=== PATIENT | female | born 1950 | race Caucasian/White ===

== ENCOUNTER 2018-08-08 07:37 | Day surgery (SDC) | payer MEDICARE, BC ==
[~2018-08-08 07:37] MED LIST: Sodium Chloride 0.9% 10 ML Syringe FLUSH PRN
[2018-08-08] MEDS ORDERED: fentaNYL 100 MCG/2 ML SDV IV ONE (07:38)
[2018-08-08] MEDS ORDERED: Midazolam 1 MG/ML 2 ML SDV IV ONE (07:38)
[2018-08-08 10:07] VITALS: BP 125/65
--- NOTE | 2018-08-09 09:41 | OR ---
DATE OF OPERATION: 08/08/2018 SURGEON: Kelley August MD PREOPERATIVE DIAGNOSIS: Visually significant cataract, left eye. POSTOPERATIVE DIAGNOSIS: Visually significant cataract, left eye. PROCEDURES PERFORMED: Phacoemulsification with intraocular lens placement, left eye. ASSISTANTS: None. ANESTHESIA: Local with sedation. COMPLICATIONS: None. BLOOD LOSS: None. IMPLANTS: Floyd [id number], 22.0 diopter lens implanted. CDE: 2.72. DESCRIPTION OF PROCEDURE: After risks and benefits were reviewed with the patient, consent was obtained in the preoperative area, and the operative eye was marked with a surgical pen. In the preoperative area, a pledget was used to dilate the pupil consisting of a mixture of phenylephrine 10%, cyclopentolate 2%, moxifloxacin 0.5%, and bupivacaine 0.75%. The patient was taken to the operating room, where a time-out was performed, and the patient was placed under monitored anesthesia care. Topical tetracaine was used for anesthesia. The operative eye was prepped and draped for ophthalmic surgery, and the microscope was brought into position and focussed. A paracentesis incision was made, followed by injection of preservative-free 1% lidocaine into the anterior chamber, followed by injection of Viscoat into the anterior chamber. A microkeratome blade was used to make a corneal limbal incision temporarily. A cystotome was used to make the beginning of the capsulorrhexis, which was carried around 360 degrees in a curvilinear fashion using Utrata forceps. A Macias cannula with BSS was used to hydrodissect and hydro-delineate the nucleus. The nucleus was removed in a divide and conquer manner using phacoemulsification. Irrigation and aspiration were used to remove the remaining cortical material. Provisc was used to inflate the capsular bag, and a pre-loaded Floyd [id number], 22.0 diopter lens, serial number [id number], was injected into the capsular bag. A Sinskey hook was used to position and center the lens. Next, irrigation and aspiration was used to remove any remaining viscoelastic and cortical material from the anterior chamber. BSS on a cannula was used to inflate the anterior chamber and hydrate the wound. The wound was checked and found to be watertight. 1 mg of Moxifloxacin was injected into the anterior chamber. Drapes were removed and the eye was cleaned. A drop of brimonidine 0.15% and a drop of TobraDex was placed. The eye was shielded, and the patient was taken to the recovery room in stable condition. /[id number] HI/ANA CC: NICKO KWON MD MTDD
== END 2018-08-08 09:57 | disposition home or self-care (01) ==
LOC: FB.SDS 07:37
PROVIDERS: ATTEND Ophthalmology
DX: H25.12 Age-related nuclear cataract, left eye (principal); H43.813 Vitreous degeneration, bilateral; H02.889 Meibomian gland dysfunction of unspecified eye, unspecified eyelid; I10 Essential (primary) hypertension; I25.10 Atherosclerotic heart disease of native coronary artery without angina pectoris; I25.2 Old myocardial infarction; E78.5 Hyperlipidemia, unspecified; K21.9 Gastro-esophageal reflux disease without esophagitis; G43.909 Migraine, unspecified, not intractable, without status migrainosus; E66.9 Obesity, unspecified; Z68.29 Body mass index [BMI] 29.0-29.9, adult; Z98.41 Cataract extraction status, right eye; Z96.1 Presence of intraocular lens; Z95.5 Presence of coronary angioplasty implant and graft; Z88.0 Allergy status to penicillin; Z88.1 Allergy status to other antibiotic agents; Z79.02 Long term (current) use of antithrombotics/antiplatelets; Z79.82 Long term (current) use of aspirin; Z79.899 Other long term (current) drug therapy
CPT/HCPCS: 00142-QZ; J2250; J3010; V2632

== ENCOUNTER 2019-04-07 22:48 | Emergency (ER) | payer MEDICARE, BC ==
--- NOTE | 2019-04-07 23:02 | EDM.PDOC ---
ED HPI GENERAL MEDICAL PROBLEM - General Stated Complaint: FELL Time Seen by Provider: 04/07/19 23:00 Source of Information: Reports: Patient History Limitations: Reports: No Limitations - History of Present Illness INITIAL COMMENTS - FREE TEXT/NARRATIVE: 69-year-old female who reports that she was walking back to her car from a basketball game at approximate 6 PM tonight and she slipped on ice falling directly on her right side and right hip. She did not hit her head. There was no loss of consciousness. She had immediate pain in her right hip and was unable to stand following this. She apparently was taken home by her family members and she continued to have pain in the area with any movement that was quite severe. She took ibuprofen for her pain without any relief and when she continued to not be able to move or bear weight on her leg she was brought to the emergency department via private vehicle with her family for evaluation. She is rating the pain as a 9/10. It is a sharp and crampy type pain. She has no neck or back pain. She has had some nausea associated with the pain but no vomiting. She had no antecedent problems. She is been eating and drinking normally. No cough or difficulty breathing. No nasal congestion. No dysuria or hematuria. No chest pain. There are no other associated signs or symptoms. There are no other modifying factors. Onset: Today (6 PM) Duration: Constant Location: Reports: Lower Extremity, Right (Right hip) Quality: Reports: Sharp, Other (Cramping and spasm-like) Severity: Moderate (to severe) Improves with: Reports: Immobilization, Rest Worsens with: Reports: Other (Palpation), Movement Context: Reports: Trauma (Fell from standing as above) Associated Symptoms: Reports: No Other Symptoms (Except as above) Treatments CHEF'S ASSISTANT: Reports: NSAIDS (Ibuprofen) right hip Pain Score (Numeric/FACES): 4 - Related Data Allergies Allergy/AdvReac Type Severity Reaction Status Date / Time Penicillins Allergy Rash Verified 08/08/18 08:08 sulfamethoxazole Allergy Hives Verified 08/08/18 08:08 [From Bactrim] trimethoprim [From Bactrim] Allergy Hives Verified 08/08/18 08:08 Home Meds: Home Meds Acetaminophen/Caffeine [Excedrin Tension Headache Cplt] 1 each PO DAILY PRN [History] Aspirin 81 mg PO DAILY 07/03/18 [History] Clopidogrel [Plavix] 75 mg PO DAILY 07/03/18 [History] Hydrocodone/Acetaminophen [[place] 5-325 Tablet] 1 - 2 each PO Q4H PRN 07/03/18 [ History] Ibuprofen [Advil] 200 mg PO Q4H PRN 07/03/18 [History] Metoprolol Succinate [Toprol XL] 25 mg PO DAILY 07/03/18 [History] Multivitamin [Daily Giorgio] 1 each PO DAILY 07/03/18 [History] Naproxen Sodium [Aleve] 220 mg PO DAILY PRN 07/03/18 [History] Nitroglycerin [Nitrostat] 0.4 mg SL ASDIRECTED PRN 07/03/18 [History] atorvaSTATin Calcium [Lipitor] 10 mg PO DAILY 07/03/18 [History] hydroCHLOROthiazide [Hydrochlorothiazide] 25 mg PO DAILY 07/03/18 [History] Past Medical History HEENT History: Reports: Cataract Cardiovascular History: Reports: Angina, CAD, High Cholesterol, Hypertension, NM , Stents (Patient is on Plavix) Genitourinary History: Reports: UTI, Recurrent Musculoskeletal History: Reports: Back Pain, Chronic Neurological History: Reports: Vertigo Hematologic History: Reports: Blood Transfusion(s) Other Hematologic History: HAD SOME TRANSFUSIONS AFTER DELIVERIES. - Infectious Disease History Infectious Disease History: Reports: Chicken Pox, Measles, Mumps - Past Surgical History HEENT Surgical History: Reports: Cataract Surgery Cardiovascular Surgical History: Reports: Coronary Artery Bypass, Coronary Artery Stent Other Cardiovascular Surgeries/Procedures: CARDIAC CATHETERIZATION GI Surgical History: Reports: Appendectomy, Cholecystectomy, Colonoscopy Female Surgical History: Reports: Section, Hysterectomy, Tubal Ligation Other Musculoskeletal Surgeries/Procedures:: HERNIATED DISC, SPINE SURGERY Social & Family History - Tobacco Use Smoking Status *Q: Unknown Ever Smoked (Nonsmoker) - Caffeine Use Caffeine Use: Reports: Coffee - Alcohol Use Alcohol Use History: No - Living Situation & Occupation Living situation: Reports: Occupation: Retired Social History Comment: Her family is here with her. Review of Systems - Review of Systems Review Of Systems: See Below Constitutional: Reports: No Symptoms Eyes: Reports: No Symptoms Ears: Reports: No Symptoms Nose: Reports: No Symptoms Mouth/Throat: Reports: No Symptoms Respiratory: Reports: No Symptoms Cardiovascular: Reports: No Symptoms GI/Abdominal: Reports: Nausea. Denies: Vomiting Genitourinary: Reports: No Symptoms Musculoskeletal: Reports: Joint Pain (Severe right hip pain) Skin: Reports: No Symptoms Neurological: Reports: No Symptoms ED EXAM, GENERAL - Physical Exam Exam: See Below Exam Limited By: No Limitations General Appearance: Alert, WD/WN, Moderate Distress Eye Exam: Bilateral Eye: EOMI, Normal Inspection, PERRL Ears: Normal External Exam, Hearing Grossly Normal Ear Exam: Bilateral Ear: Auricle Normal Nose: Normal Inspection, Normal Mucosa, No Blood Throat/Mouth: Normal Voice, No Airway Compromise, Other (Dry mucous membranes) Head: Atraumatic, Normocephalic Neck: Normal Inspection, Supple, Non-Tender, Full Range of Motion Respiratory/Chest: No Respiratory Distress, Lungs Clear, Normal Breath Sounds, No Accessory Muscle Use, Chest Non-Tender Cardiovascular: Normal Peripheral Pulses, Regular Rate, Rhythm, No JVD, No Murmur Peripheral Pulses: 2+: Radial (L), Radial (R), Dorsalis Pedis (L), Dorsalis Pedis (R) GI/Abdominal: Normal Bowel Sounds, Soft, Non-Tender, Pelvis Stable Extremities: No Pedal Edema, Normal Capillary Refill, Other (Moderate to severe tenderness with palpation over right hip area) Neurological: Alert, Oriented, CN II-XII Intact, Normal Cognition, No Motor/ Sensory Deficits Skin Exam: Warm, Dry, Intact, Normal Color, No Rash Course - Vital Signs Last Recorded V/S: Last Vital Signs Temp 36.6 C 04/07/19 23:00 Pulse 74 04/08/19 02:00 Resp 18 04/08/19 02:00 BP 118/51 L 04/08/19 02:00 Pulse Ox 94 L 04/08/19 02:00 - Orders/Labs/Meds Orders: Active Orders 24 hr Category Date Time Status Insert Urinary Catheter [OM.PC] Q24H Care 04/08/19 00:15 Ordered Urinary Catheter Assessment [RC] QSHIFT Care 04/08/19 00:03 Active Hip Min 2V or 3V w Pelvis Rt [CR] Stat Exams 04/07/19 23:15 Taken Peripheral IV Insertion Adult [OM.PC] Routine Oth 04/07/19 23:15 Ordered Labs: Laboratory Tests 01/26/20 01/26/20 01/26/20 Range/Units 00:20 00:20 00:20 WBC 15.0 H (4.5-12.0) X10-3/uL RBC 4.93 (3.23-5.20) x10(6)uL Hgb 13.6 (11.5-15.5) g/dL Hct 40.7 (30.0-51.3) % MCV 82.5 (80-96) fL MCH 27.6 L (27.7-33.6) pg MCHC 33.4 (32.2-35.4) g/dL RDW 13.1 (11.5-15.5) % Plt Count 286 (125-369) X10(3)uL MPV 8.8 (7.4-10.4) fL Neut % (Auto) 83.6 H (46-82) % Lymph % (Auto) 8.8 L (13-37) % [place] % (Auto) 6.6 (4-12) % Eos % (Auto) 1 (1.0-5.0) % Baso % (Auto) 0 (0-2) % Neut # (Auto) 12.5 H (1.6-8.3) # Lymph # (Auto) 1.3 (0.6-5.0) # [place] # (Auto) 1.0 (0.0-1.3) # Eos # (Auto) 0.1 (0.0-0.8) # Baso # (Auto) 0.1 (0.0-0.2) # PT 10.4 (8.7-11.1) INR 1.07 (0.89-1.13) Sodium 143 (135-145) mmol/L Potassium 3.0 L (3.5-5.3) mmol/L Chloride 104 (100-110) mmol/L Carbon Dioxide 26 (21-32) mmol/L BUN 13 (7-18) mg/dL Creatinine 0.8 (0.55-1.02) mg/dL Est Cr Clr Drug Dosing TNP Estimated GFR (MDRD) > 60 (>60) BUN/Creatinine Ratio 16.3 (9-20) Glucose 170 H (80-116) mg/dL Calcium 9.6 (8.6-10.2) mg/dL Total Bilirubin 1.0 (0.1-1.3) mg/dL AST 43 H (5-25) IU/L ALT 40 H (12-36) U/L Alkaline Phosphatase 59 (56-112) IU/L Total Protein 7.5 (6.0-8.0) g/dL Albumin 4.0 (3.2-4.6) g/dL Globulin 3.5 g/dL Albumin/Globulin Ratio 1.1 Urine Color (YELLOW) Urine Appearance (CLEAR) Urine pH (5.0-6.5) Ur Specific [place] (1.010-1.025) Urine Protein (NEGATIVE) mg/dL Urine Glucose (UA) (NORMAL) mg/dL Urine Ketones (NEGATIVE) mg/dL Urine Occult Blood (NEGATIVE) Urine Nitrite (NEGATIVE) Urine Bilirubin (NEGATIVE) Urine Urobilinogen (NEGATIVE) mg/dL Ur Leukocyte Esterase (NEGATIVE) Urine RBC (0-5) Urine WBC (0-5) Ur Squamous Epith Cells (NS,R,O) Urine Bacteria (NS) 04/08/19 Range/Units 01:45 WBC (4.5-12.0) X10-3/uL RBC (3.23-5.20) x10(6)uL Hgb (11.5-15.5) g/dL Hct (30.0-51.3) % MCV (80-96) fL MCH (27.7-33.6) pg MCHC (32.2-35.4) g/dL RDW (11.5-15.5) % Plt Count (125-369) X10(3)uL MPV (7.4-10.4) fL Neut % (Auto) (46-82) % Lymph % (Auto) (13-37) % [place] % (Auto) (4-12) % Eos % (Auto) (1.0-5.0) % Baso % (Auto) (0-2) % Neut # (Auto) (1.6-8.3) # Lymph # (Auto) (0.6-5.0) # [place] # (Auto) (0.0-1.3) # Eos # (Auto) (0.0-0.8) # Baso # (Auto) (0.0-0.2) # PT (8.7-11.1) INR (0.89-1.13) Sodium (135-145) mmol/L Potassium (3.5-5.3) mmol/L Chloride (100-110) mmol/L Carbon Dioxide (21-32) mmol/L BUN (7-18) mg/dL Creatinine (0.55-1.02) mg/dL Est Cr Clr Drug Dosing Estimated GFR (MDRD) (>60) BUN/Creatinine Ratio (9-20) Glucose (80-116) mg/dL Calcium (8.6-10.2) mg/dL Total Bilirubin (0.1-1.3) mg/dL AST (5-25) IU/L ALT (12-36) U/L Alkaline Phosphatase (56-112) IU/L Total Protein (6.0-8.0) g/dL Albumin (3.2-4.6) g/dL Globulin g/dL Albumin/Globulin Ratio Urine Color Yellow (YELLOW) Urine Appearance Cloudy (CLEAR) Urine pH 6.0 (5.0-6.5) Ur Specific [place] 1.015 (1.010-1.025) Urine Protein Negative (NEGATIVE) mg/dL Urine Glucose (UA) Normal (NORMAL) mg/dL Urine Ketones 15 H (NEGATIVE) mg/dL Urine Occult Blood Moderate H (NEGATIVE) Urine Nitrite Positive H (NEGATIVE) Urine Bilirubin Negative (NEGATIVE) Urine Urobilinogen Normal (NEGATIVE) mg/dL Ur Leukocyte Esterase Large H (NEGATIVE) Urine RBC 5-10 H (0-5) Urine WBC 40-50 H (0-5) Ur Squamous Epith Cells Occasional (NS,R,O) Urine Bacteria Many H (NS) Meds: Medications Discontinued Medications Generic Name Dose Route Start Last Admin Trade Name Freq PRN Reason Stop Dose Admin Hydromorphone HCl 0.5 mg 04/07/19 23:16 04/07/19 23:28 Dilaudid IVPUSH 04/07/19 23:17 0.5 mg ONETIME ONE Administration Hydromorphone HCl 0.5 mg 04/08/19 00:03 04/08/19 01:04 Dilaudid IVPUSH 04/08/19 00:04 0.5 mg ONETIME ONE Administration Sodium Chloride 1,000 mls @ 125 mls/hr 04/07/19 23:30 04/07/19 23:30 Normal Saline IV 125 mls/hr ASDIRECTED RENEE Administration Promethazine HCl 25 mg/ Sodium 51 mls @ 200 mls/hr 04/08/19 02:07 04/08/19 02 :12 Chloride IV 04/08/19 02:22 200 mls/hr ONETIME ONE Administration Ondansetron HCl 4 mg 04/07/19 23:16 04/07/19 23:29 Zofran IVPUSH 04/07/19 23:17 4 mg ONETIME ONE Administration Ondansetron HCl 4 mg 04/08/19 01:07 04/08/19 01:38 Zofran IVPUSH 04/08/19 01:08 4 mg ONETIME ONE Administration Potassium Chloride 40 meq 04/08/19 00:58 04/08/19 01:39 Potassium Chloride Solution PO 04/08/19 00:59 Not Given ONETIME ONE Sodium Chloride 10 ml 04/07/19 23:15 04/08/19 01:07 Saline Flush FLUSH 10 ml ASDIRECTED PRN Administration Keep Vein Open - Radiology Interpretation Free Text/Narrative:: Right hip and pelvis x-ray shows a right subcapital hip fracture. - Re-Assessments/Exams Free Text/Narrative Re-Assessment/Exam: 04/08/19 00:40: X-ray of the patient's right hip and pelvis shows a right subcapital hip fracture. She will need orthopedic specially services which are at present at [facility]. She will need transfer for these services. I discussed this with the patient and she would prefer that I discussed her case with the doctors at [facility] in [place]. 04/08/19 01:00: I discussed the patient's case with Dr. Malagon, hospitalist at [facility] in [place], and he has agreed to accept the patient in transfer. The patient's potassium was 3.0 and I will give her potassium 40 mEq by mouth. In addition, the patient is having recurrent pain and I will give her another dose of Dilaudid IV. She'll also be given Zofran IV for any nausea. The patient will be transferred via service to [facility] in [place] for direct admission. I have discussed this with the patient and her family and they are in agreement with this plan. 04/08/19 01:38: She was unable to take the potassium secondary to nausea with emesis. Departure - Departure Time of Disposition: 02:15 Disposition: DC/Tfer to Acute Hospital 02 Condition: Fair (Stable) Clinical Impression: Subcapital fracture of right hip Qualifiers: Encounter type: initial encounter Fracture type: closed Qualified Code(s): S72.011A - Unspecified intracapsular fracture of right femur, initial encounter for closed fracture Fall from slipping on ice Qualifiers: Encounter type: initial encounter Qualified Code(s): W00.9XXA - Unspecified fall due to ice and snow, initial encounter - Discharge Information Referrals: Reeys Johnson MD [Primary Care Provider] - Forms: ED Department Discharge Sepsis Event Note - Focused Exam Vital Signs: Vital Signs Temp Pulse Resp BP Pulse Ox 04/08/19 02:00 74 18 118/51 L 94 L 04/08/19 01:00 70 15 140/68 100 04/07/19 23:00 36.6 C 78 16 132/66 100 Date Exam was Performed: 04/08/19 Time Exam was Performed: 04:18 - My Orders Last 24 Hours: My Active Orders 04/07/19 23:15 Hip Min 2V or 3V w Pelvis Rt [CR] Stat Peripheral IV Insertion Adult [OM.PC] Routine 04/08/19 00:03 Urinary Catheter Assessment [RC] QSHIFT 04/08/19 00:15 Insert Urinary Catheter [OM.PC] Q24H - Assessment/Plan Last 24 Hours: My Active Orders 04/07/19 23:15 Hip Min 2V or 3V w Pelvis Rt [CR] Stat Peripheral IV Insertion Adult [OM.PC] Routine 04/08/19 00:03 Urinary Catheter Assessment [RC] QSHIFT 04/08/19 00:15 Insert Urinary Catheter [OM.PC] Q24H
[2019-04-07] MEDS ORDERED: Sodium Chloride 0.9% 10 ML Syringe FLUSH PRN (23:15)
[2019-04-07] MEDS ORDERED: Ondansetron 4 MG/2 ML SDV IVPUSH ONE (23:16)
[2019-04-07] MEDS ORDERED: HYDROmorphone 2 MG/ML SDV IVPUSH ONE (23:16)
[2019-04-07] MEDS ORDERED: Sodium Chloride 0.9% 1,000 ML IV SCH (23:30)
[2019-04-08] MEDS ORDERED: HYDROmorphone 2 MG/ML SDV IVPUSH ONE (00:03)
[2019-04-08] MEDS ORDERED: Potassium Chloride 10% 20 MEQ/15 ML Soln 15 ML UD Cup PO ONE (00:58)
[2019-04-08] MEDS ORDERED: Ondansetron 4 MG/2 ML SDV IVPUSH ONE (01:07)
[2019-04-08] MEDS ORDERED: Promethazine 25 MG in Sodium Chloride 0.9% 50 ML IV ONE (02:07)
[2019-04-08 02:52] VITALS: BP 118/51; PULSE 74
== END 2019-04-08 02:15 ==
LOC: FB.ED 22:48
DX: S72.011A Unspecified intracapsular fracture of right femur, initial encounter for closed fracture (principal); I25.10 Atherosclerotic heart disease of native coronary artery without angina pectoris; E78.00 Pure hypercholesterolemia, unspecified; I10 Essential (primary) hypertension; I25.2 Old myocardial infarction; Z79.82 Long term (current) use of aspirin; Z79.02 Long term (current) use of antithrombotics/antiplatelets; Z88.0 Allergy status to penicillin; Z88.1 Allergy status to other antibiotic agents; Z88.2 Allergy status to sulfonamides; Z95.5 Presence of coronary angioplasty implant and graft; W00.0XXA Fall on same level due to ice and snow, initial encounter; Y92.310 Basketball court as the place of occurrence of the external cause
CPT/HCPCS: 36415; 51702; 73502; 80053; 81001; 85025; 85610; 96361; 96374; 96375; 96376; 99284; 99285; J1170; J2405; J2550; J7030; J7050

== ENCOUNTER 2021-09-07 11:38 | Emergency (ER) | payer MEDICARE, BC ==
[2021-09-07 11:51] VITALS: BP 114/52; PULSE 56
[2021-09-07] MEDS: NS + KCl 20mEq/L 1,000 ML IV SCH ×2 (13:52→17:27)
[2021-09-07] MEDS: Magnesium Sulfate/Water 2 GM in Premix Bag 1 BAG IV ONE (13:57)
[2021-09-07] MEDS: Potassium Chloride 20 MEQ Tab.ER PO ONE (13:58)
[2021-09-07] MEDS: Ciprofloxacin 500 MG Tab PO ONE (14:54)
== END 2021-09-07 19:00 | disposition home or self-care (01) ==
LOC: FB.ED 11:38
DX: N30.00 Acute cystitis without hematuria (principal); E86.0 Dehydration; E83.42 Hypomagnesemia; I25.119 Atherosclerotic heart disease of native coronary artery with unspecified angina pectoris; I10 Essential (primary) hypertension; I25.2 Old myocardial infarction; Z95.5 Presence of coronary angioplasty implant and graft; Z88.0 Allergy status to penicillin; Z88.1 Allergy status to other antibiotic agents; Z79.82 Long term (current) use of aspirin; Z79.02 Long term (current) use of antithrombotics/antiplatelets; Z79.899 Other long term (current) drug therapy; Z86.73 Personal history of transient ischemic attack (TIA), and cerebral infarction without residual deficits
CPT/HCPCS: 36415; 70450; 81001; 83735; 87086; 87088; 87186; 96365; 96366; 96367; 96368; 99282; 99285-25; A9270-GY; J3475; J3480

== ENCOUNTER 2021-12-31 08:25 | Day surgery (SDC) | payer MEDICARE, BC ==
[2021-12-31 06:50] VITALS: BP_SYST 2658
[2021-12-31] MEDS ORDERED: Sodium Chloride 0.9% 10 ML Syringe FLUSH PRN (08:45)
[2021-12-31] MEDS ORDERED: Lactated Ringers 1,000 ML IV SCH (08:45)
[2021-12-31] MEDS ORDERED: Propofol 200 MG/20 ML SDV IV ONE (11:00)
== END 2021-12-31 13:30 | disposition home or self-care (01) ==
LOC: FB.SDS 08:25
PROVIDERS: ATTEND Surgery
DX: Z12.11 Encounter for screening for malignant neoplasm of colon (principal); I10 Essential (primary) hypertension; F32.A Depression, unspecified; E66.9 Obesity, unspecified; R73.9 Hyperglycemia, unspecified; N39.0 Urinary tract infection, site not specified; E83.52 Hypercalcemia; Z79.899 Other long term (current) drug therapy; Z88.0 Allergy status to penicillin; Z88.2 Allergy status to sulfonamides; Z90.49 Acquired absence of other specified parts of digestive tract; Z98.890 Other specified postprocedural states; Z68.25 Body mass index [BMI] 25.0-25.9, adult
CPT/HCPCS: G0121; J2704; J7120

== ENCOUNTER 2022-06-14 16:46 | Emergency (ER) | payer MEDICARE, BC ==
[2022-06-14 18:10] VITALS: BP 135/71; PULSE 58
== END 2022-06-14 18:36 | disposition home or self-care (01) ==
LOC: FB.ED 16:46
DX: S70.01XA Contusion of right hip, initial encounter (principal); I25.10 Atherosclerotic heart disease of native coronary artery without angina pectoris; E78.00 Pure hypercholesterolemia, unspecified; I10 Essential (primary) hypertension; I25.2 Old myocardial infarction; E66.9 Obesity, unspecified; Z68.25 Body mass index [BMI] 25.0-25.9, adult; Z88.0 Allergy status to penicillin; Z88.2 Allergy status to sulfonamides; Z88.8 Allergy status to other drugs, medicaments and biological substances; Z79.82 Long term (current) use of aspirin; Z79.899 Other long term (current) drug therapy; Z95.5 Presence of coronary angioplasty implant and graft; Z95.1 Presence of aortocoronary bypass graft; W18.30XA Fall on same level, unspecified, initial encounter; Y92.009 Unspecified place in unspecified non-institutional (private) residence as the place of occurrence of the external cause
CPT/HCPCS: 73502-RT; 99283

== ENCOUNTER 2023-06-09 20:29 | Inpatient (IN) | payer MEDICARE, BC ==
[2023-06-09] MEDS ORDERED: Sodium Chloride 0.9% 10 ML Syringe FLUSH PRN (20:55)
[2023-06-09 21:48] LABS: BASOPHILS PERCENT AUTO 0.7 % (0.2-1.5); EOSINOPHILS PERCENT AUTO 0.1 % (0.6-8.1); HEMATOCRIT 42.6 % (34.2-48.2); HEMOGLOBIN 14.5 g/dL (11.4-15.5); LYMPHOCYTES ABSOLUTE AUTO 0.5 x10-3/uL (1.0-4.4); LYMPHOCYTES PERCENT AUTO 7.5 % (18.4-52.1); MEAN CORPUSCULAR HEMOGLOBIN 29.2 pg (23.9-33.9); MEAN CORPUSCULAR VOLUME 85.7 fL (76.7-100.5); MEAN PLATELET VOLUME 8.8 fL (7.1-12.4); MONOCYTES ABSOLUTE AUTO 0.9 x10-3/uL (0.3-1.0); MONOCYTES PERCENT AUTO 12.1 % (4.4-15.7); NEUTROPHILS ABSOLUTE AUTO 5.7 x10-3/uL (1.5-6.3); NEUTROPHILS PERCENT AUTO 79.6 % (30.8-76.2); PLATELET COUNT,PLT 229 x10(3)uL (151-488); RED BLOOD CELL COUNT 4.97 x10(6)uL (3.60-5.20); RED CELL DISTRIBUTION WIDTH 14.6 % (12.3-16.5); WHITE BLOOD CELL COUNT,WBC 7.2 x10-3/uL (3.0-10.3)
[2023-06-09 21:49] LABS: BLOOD UREA NITROGEN,BUN 19 mg/dL (7-18); BUN/CREATININE RATIO 15.8 (9-20); CALCIUM 9.6 mg/dL (8.6-10.2); CARBON DIOXIDE,CO2 26 mmol/L (21-32); CHLORIDE,CL 97 mmol/L (100-110); CREATININE 1.2 mg/dL (0.55-1.02); ESTIMATED GFR 48 mL/min (>60); GLUCOSE RANDOM 134 mg/dL (80-116); POTASSIUM,K 4.2 mmol/L (3.5-5.3); SODIUM,NA 134 mmol/L (135-145)
[2023-06-09 21:55] LABS: A/G RATIO 0.8; ALANINE AMINOTRANSFERASE,ALT 41 U/L (12-36); ALBUMIN 3.9 g/dL (3.2-4.6); ALKALINE PHOSPHATASE 98 IU/L (56-112); ASPARTATE AMNIOTRANSFERASE,AST 37 IU/L (5-25); BILIRUBIN TOTAL 0.9 mg/dL (0.1-1.3); PROTEIN TOTAL,TP 8.8 g/dL (6.0-8.0)
[2023-06-09 22:12] LABS: INFLUENZA A NAA POSITIVE (NEGATIVE); INFLUENZA B NAA NEGATIVE (NEGATIVE); RESPIRATORY SYNCYTIAL VIR NAA NEGATIVE (NEGATIVE)
[2023-06-09 22:13] LABS: CORONAVIRUS COVID-19 NAA NEGATIVE (NEGATIVE)
[2023-06-09 22:21] LABS: C-REACTIVE PROTEIN < 0.50 mg/dL (<0.50)
[2023-06-09] MEDS ORDERED: Ketorolac 30 MG/ML SDV IM PRN (22:23)
[2023-06-09] MEDS ORDERED: Morphine 2 MG/ML SYRINGE IVPUSH PRN (22:25)
[2023-06-09] MEDS: Codeine/guaiFENesin 10-100 MG/5 ML Syrup 5 ML Cup PO SCH (23:18)
[2023-06-09] MEDS: Oseltamivir 75 MG Cap PO SCH (23:18)
[2023-06-09] MEDS: Acetaminophen 325 MG Tab PO PRN (23:18)
[2023-06-09] MEDS: Sodium Chloride 0.9% 1,000 ML IV SCH (23:19)
[2023-06-09 23:44] LABS: BILIRUBIN,URINE NEGATIVE (NEGATIVE); GLUCOSE,URINE NORMAL (NORMAL); KETONES,URINE 15 mg/dL (NEGATIVE); LEUKOCYTE ESTERASE,URINE LARGE (NEGATIVE); NITRITE,URINE POSITIVE (NEGATIVE); OCCULT BLOOD,URINE LARGE (NEGATIVE); PROTEIN,URINE 30 mg/dL (NEGATIVE); UROBILINOGEN,URINE NORMAL (NEGATIVE)
[2023-06-09 23:45] LABS: APPEARANCE,URINE CLOUDY (CLEAR); COLOR,URINE YELLOW (YELLOW)
[2023-06-09 23:52] LABS: BACTERIA,URINE MANY (NS); SQUAMOUS EPITHELIAL CELLS,UR MODERATE (NS,R,O); WBC,URINE >100 (0-5)
[2023-06-10] MEDS: Sodium Chloride 0.9% 1,000 ML IV SCH (07:54)
[2023-06-10 08:05] LABS: BASOPHILS PERCENT AUTO 0.6 % (0.2-1.5); EOSINOPHILS PERCENT AUTO 0.4 % (0.6-8.1); HEMATOCRIT 39.5 % (34.2-48.2); HEMOGLOBIN 13.2 g/dL (11.4-15.5); LYMPHOCYTES ABSOLUTE AUTO 0.7 x10-3/uL (1.0-4.4); LYMPHOCYTES PERCENT AUTO 12.8 % (18.4-52.1); MEAN CORPUSCULAR HEMOGLOBIN 28.9 pg (23.9-33.9); MEAN CORPUSCULAR HGB CONC 33.4 g/dL (31.9-34.8); MEAN CORPUSCULAR VOLUME 86.6 fL (76.7-100.5); MEAN PLATELET VOLUME 8.7 fL (7.1-12.4); MONOCYTES ABSOLUTE AUTO 0.7 x10-3/uL (0.3-1.0); MONOCYTES PERCENT AUTO 13.5 % (4.4-15.7); NEUTROPHILS ABSOLUTE AUTO 3.7 x10-3/uL (1.5-6.3); NEUTROPHILS PERCENT AUTO 72.7 % (30.8-76.2); PLATELET COUNT,PLT 194 x10(3)uL (151-488); RED BLOOD CELL COUNT 4.56 x10(6)uL (3.60-5.20); RED CELL DISTRIBUTION WIDTH 15.3 % (12.3-16.5); WHITE BLOOD CELL COUNT,WBC 5.2 x10-3/uL (3.0-10.3)
[2023-06-10] MEDS: Sodium Chloride 0.9% 1,000 ML IV ONE (08:10)
[2023-06-10 08:12] LABS: A/G RATIO 0.7; ALANINE AMINOTRANSFERASE,ALT 35 U/L (12-36); ALBUMIN 3.2 g/dL (3.2-4.6); ALKALINE PHOSPHATASE 83 IU/L (56-112); ASPARTATE AMNIOTRANSFERASE,AST 36 IU/L (5-25); BILIRUBIN TOTAL 0.9 mg/dL (0.1-1.3); BLOOD UREA NITROGEN,BUN 20 mg/dL (7-18); CALCIUM 8.2 mg/dL (8.6-10.2); CARBON DIOXIDE,CO2 25 mmol/L (21-32); CHLORIDE,CL 103 mmol/L (100-110); EST CRCL DRUG DOSING (CG) 35.45 mL/min; ESTIMATED GFR 59 mL/min (>60); GLUCOSE RANDOM 101 mg/dL (80-116); PROTEIN TOTAL,TP 7.5 g/dL (6.0-8.0); SODIUM,NA 137 mmol/L (135-145)
[2023-06-10] MEDS ORDERED: cefTRIAXone 1 GM in Sodium Chloride 0.9% 50 ML IV SCH (08:30)
[2023-06-10] MEDS: cefTRIAXone 1 GM Vial IVPUSH SCH (09:14)
[2023-06-10] MEDS: Enoxaparin 40 MG/0.4 ML Syringe SUBCUT SCH (09:47)
[2023-06-10] MEDS: Oseltamivir 30 MG Cap PO SCH (09:47)
[2023-06-10] MEDS: Codeine/guaiFENesin 10-100 MG/5 ML Syrup 5 ML Cup PO PRN (14:38)
[2023-06-10] MEDS: Pregabalin 25 MG Cap PO SCH (20:15)
[2023-06-10] MEDS: Donepezil 10 MG Tab PO SCH (20:16)
[2023-06-10] MEDS: Memantine 10 MG Tab PO SCH (20:16)
[2023-06-11] MEDS: atorvaSTATin 20 MG Tab PO SCH (08:56)
[2023-06-11] MEDS: Clopidogrel 75 MG Tab PO SCH (08:57)
[2023-06-11] MEDS ORDERED: Potassium Chloride 20 MEQ Tab.ER PO SCH (09:00)
[2023-06-12] MEDS: Cefdinir 300 MG Cap PO SCH ×2 (10:26→23:28)
[2023-06-13] MEDS: Ondansetron 4 MG Tab.DIS PO PRN (05:33)
[2023-06-13 06:52] LABS: BASOPHILS PERCENT AUTO 1.1 % (0.2-1.5); EOSINOPHILS ABSOLUTE AUTO 0.3 x10-3/uL (0.0-0.8); EOSINOPHILS PERCENT AUTO 7.3 % (0.6-8.1); HEMOGLOBIN 11.4 g/dL (11.4-15.5); LYMPHOCYTES ABSOLUTE AUTO 0.7 x10-3/uL (1.0-4.4); LYMPHOCYTES PERCENT AUTO 18.7 % (18.4-52.1); MEAN CORPUSCULAR HEMOGLOBIN 28.8 pg (23.9-33.9); MEAN CORPUSCULAR HGB CONC 33.5 g/dL (31.9-34.8); MEAN CORPUSCULAR VOLUME 85.9 fL (76.7-100.5); MEAN PLATELET VOLUME 8.2 fL (7.1-12.4); MONOCYTES ABSOLUTE AUTO 0.4 x10-3/uL (0.3-1.0); MONOCYTES PERCENT AUTO 9.6 % (4.4-15.7); NEUTROPHILS ABSOLUTE AUTO 2.5 x10-3/uL (1.5-6.3); NEUTROPHILS PERCENT AUTO 63.3 % (30.8-76.2); PLATELET COUNT,PLT 165 x10(3)uL (151-488); RED BLOOD CELL COUNT 3.96 x10(6)uL (3.60-5.20); RED CELL DISTRIBUTION WIDTH 14.8 % (12.3-16.5)
[2023-06-13 07:02] LABS: BLOOD UREA NITROGEN,BUN 6 mg/dL (7-18); BUN/CREATININE RATIO 7.5 (9-20); CARBON DIOXIDE,CO2 23 mmol/L (21-32); CHLORIDE,CL 108 mmol/L (100-110); CREATININE 0.8 mg/dL (0.55-1.02); EST CRCL DRUG DOSING (CG) 44.31 mL/min; ESTIMATED GFR 77 mL/min (>60); GLUCOSE RANDOM 95 mg/dL (80-116); POTASSIUM,K 2.9 mmol/L (3.5-5.3); SODIUM,NA 141 mmol/L (135-145)
[2023-06-13] MEDS: Potassium Chloride 20 MEQ Tab.ER PO SCH (09:03)
[2023-06-14 06:27] LABS: BASOPHILS PERCENT AUTO 0.9 % (0.2-1.5); EOSINOPHILS ABSOLUTE AUTO 0.3 x10-3/uL (0.0-0.8); EOSINOPHILS PERCENT AUTO 7.3 % (0.6-8.1); HEMOGLOBIN 11.3 g/dL (11.4-15.5); LYMPHOCYTES ABSOLUTE AUTO 0.9 x10-3/uL (1.0-4.4); LYMPHOCYTES PERCENT AUTO 22.9 % (18.4-52.1); MEAN CORPUSCULAR HEMOGLOBIN 28.6 pg (23.9-33.9); MEAN CORPUSCULAR HGB CONC 33.3 g/dL (31.9-34.8); MEAN CORPUSCULAR VOLUME 85.9 fL (76.7-100.5); MONOCYTES ABSOLUTE AUTO 0.4 x10-3/uL (0.3-1.0); MONOCYTES PERCENT AUTO 11.1 % (4.4-15.7); NEUTROPHILS ABSOLUTE AUTO 2.2 x10-3/uL (1.5-6.3); NEUTROPHILS PERCENT AUTO 57.8 % (30.8-76.2); PLATELET COUNT,PLT 181 x10(3)uL (151-488); RED BLOOD CELL COUNT 3.96 x10(6)uL (3.60-5.20); RED CELL DISTRIBUTION WIDTH 15.3 % (12.3-16.5); WHITE BLOOD CELL COUNT,WBC 3.8 x10-3/uL (3.0-10.3)
[2023-06-14 06:31] LABS: BLOOD UREA NITROGEN,BUN 9 mg/dL (7-18); CALCIUM 8.1 mg/dL (8.6-10.2); CARBON DIOXIDE,CO2 22 mmol/L (21-32); CHLORIDE,CL 107 mmol/L (100-110); CREATININE 0.9 mg/dL (0.55-1.02); EST CRCL DRUG DOSING (CG) 39.39 mL/min; ESTIMATED GFR 67 mL/min (>60); GLUCOSE RANDOM 108 mg/dL (80-116); POTASSIUM,K 3.3 mmol/L (3.5-5.3); SODIUM,NA 141 mmol/L (135-145)
[2023-06-14 08:17] VITALS: PULSE 62
[2023-06-14] MEDS: Potassium Chloride 20 MEQ Tab.ER PO ONE (09:27)
[2023-06-14 11:05] VITALS: BP 123/64
== END 2023-06-14 11:40 | disposition home health service (06) | DRG 194 ==
LOC: FB.ED 20:29 → FB.MS 22:46
PROVIDERS: ADMIT Family Medicine; ATTEND Family Medicine
PROC: 0T9B70Z Drainage of Bladder with Drainage Device, Via Natural or Artificial Opening (ICD-10-PCS; principal; 2023-06-10)
DX: J10.1 Influenza due to other identified influenza virus with other respiratory manifestations (principal); J11.1 Influenza due to unidentified influenza virus with other respiratory manifestations; I10 Essential (primary) hypertension; F01.A3 Vascular dementia, mild, with mood disturbance; I25.810 Atherosclerosis of coronary artery bypass graft(s) without angina pectoris; N30.01 Acute cystitis with hematuria; F02.A3 Dementia in other diseases classified elsewhere, mild, with mood disturbance; F05 Delirium due to known physiological condition; E86.0 Dehydration; M54.9 Dorsalgia, unspecified; G89.29 Other chronic pain; M70.71 Other bursitis of hip, right hip; M53.3 Sacrococcygeal disorders, not elsewhere classified; I25.10 Atherosclerotic heart disease of native coronary artery without angina pectoris; E78.00 Pure hypercholesterolemia, unspecified; G30.9 Alzheimer's disease, unspecified; E66.9 Obesity, unspecified; I95.89 Other hypotension; I12.9 Hypertensive chronic kidney disease with stage 1 through stage 4 chronic kidney disease, or unspecified chronic kidney disease; N18.31 Chronic kidney disease, stage 3a; Z74.09 Other reduced mobility; E87.6 Hypokalemia; B96.20 Unspecified Escherichia coli [E. coli] as the cause of diseases classified elsewhere; Z88.0 Allergy status to penicillin; Z88.2 Allergy status to sulfonamides; Z88.8 Allergy status to other drugs, medicaments and biological substances; Z79.899 Other long term (current) drug therapy; Z79.02 Long term (current) use of antithrombotics/antiplatelets; I25.2 Old myocardial infarction; Z95.5 Presence of coronary angioplasty implant and graft; Z87.81 Personal history of (healed) traumatic fracture; Z68.32 Body mass index [BMI] 32.0-32.9, adult; Z98.49 Cataract extraction status, unspecified eye; Z95.1 Presence of aortocoronary bypass graft; Z90.49 Acquired absence of other specified parts of digestive tract; Z98.890 Other specified postprocedural states; Z90.710 Acquired absence of both cervix and uterus; Z98.51 Tubal ligation status; W19.XXXA Unspecified fall, initial encounter
CPT/HCPCS: 0241U; 36415; 71045; 80048; 80053; 81001; 84484; 85025; 86140; 87040; 87086; 87088; 87186; 97161-GP; 97165-GO; 97530-GP; 99223; 99233; 99238; 99285; A9270-GY; J0696; J1650; J7030; Q0162

== ENCOUNTER 2023-07-12 08:55 | Inpatient (IN) | payer MEDICARE, BC ==
[2023-07-12 10:13] LABS: BILIRUBIN,URINE NEGATIVE (NEGATIVE); GLUCOSE,URINE NORMAL (NORMAL); KETONES,URINE NEGATIVE (NEGATIVE); LEUKOCYTE ESTERASE,URINE LARGE (NEGATIVE); NITRITE,URINE NEGATIVE (NEGATIVE); OCCULT BLOOD,URINE LARGE (NEGATIVE); PROTEIN,URINE 30 mg/dL (NEGATIVE); UROBILINOGEN,URINE NORMAL (NEGATIVE)
[2023-07-12 10:16] LABS: APPEARANCE,URINE CLOUDY (CLEAR); COLOR,URINE YELLOW (YELLOW)
[2023-07-12 10:17] LABS: BASOPHILS PERCENT AUTO 0.5 % (0.2-1.5); EOSINOPHILS PERCENT AUTO 0.5 % (0.6-8.1); HEMATOCRIT 40.5 % (34.2-48.2); HEMOGLOBIN 13.7 g/dL (11.4-15.5); LYMPHOCYTES ABSOLUTE AUTO 0.6 x10-3/uL (1.0-4.4); LYMPHOCYTES PERCENT AUTO 6.6 % (18.4-52.1); MEAN CORPUSCULAR HEMOGLOBIN 29.2 pg (23.9-33.9); MEAN CORPUSCULAR HGB CONC 33.9 g/dL (31.9-34.8); MEAN CORPUSCULAR VOLUME 86.2 fL (76.7-100.5); MEAN PLATELET VOLUME 9.3 fL (7.1-12.4); MONOCYTES ABSOLUTE AUTO 0.7 x10-3/uL (0.3-1.0); MONOCYTES PERCENT AUTO 7.7 % (4.4-15.7); NEUTROPHILS ABSOLUTE AUTO 8.1 x10-3/uL (1.5-6.3); NEUTROPHILS PERCENT AUTO 84.7 % (30.8-76.2); RED CELL DISTRIBUTION WIDTH 14.4 % (12.3-16.5); WHITE BLOOD CELL COUNT,WBC 9.5 x10-3/uL (3.0-10.3)
[2023-07-12 10:17] LABS: BACTERIA,URINE MANY (NS); RBC,URINE >100 (0-5); SQUAMOUS EPITHELIAL CELLS,UR FEW (NS,R,O); WBC,URINE PACKED (0-5)
[2023-07-12 10:26] LABS: LACTIC ACID 1.9 mmol/L (0.4-2.0)
[2023-07-12 10:29] LABS: PLATELET COUNT,PLT 260 x10(3)uL (151-488)
[2023-07-12 10:39] LABS: INFLUENZA A NAA NEGATIVE (NEGATIVE); INFLUENZA B NAA NEGATIVE (NEGATIVE); RESPIRATORY SYNCYTIAL VIR NAA NEGATIVE (NEGATIVE)
[2023-07-12 10:40] LABS: CORONAVIRUS COVID-19 NAA NEGATIVE (NEGATIVE)
[2023-07-12 10:43] LABS: BLOOD UREA NITROGEN,BUN 12 mg/dL (7-18); CALCIUM 9.4 mg/dL (8.6-10.2); CARBON DIOXIDE,CO2 22 mmol/L (21-32); CHLORIDE,CL 101 mmol/L (100-110); EST CRCL DRUG DOSING (CG) 35.45 mL/min; ESTIMATED GFR 59 mL/min (>60); GLUCOSE RANDOM 126 mg/dL (80-116); POTASSIUM,K 3.7 mmol/L (3.5-5.3); SODIUM,NA 138 mmol/L (135-145)
[2023-07-12 10:49] LABS: A/G RATIO 0.8; ALANINE AMINOTRANSFERASE,ALT 32 U/L (12-36); ALBUMIN 3.7 g/dL (3.2-4.6); ALKALINE PHOSPHATASE 94 IU/L (56-112); ASPARTATE AMNIOTRANSFERASE,AST 24 IU/L (5-25); BILIRUBIN TOTAL 1.2 mg/dL (0.1-1.3); CREATINE KINASE,CK 130 IU/L (60-160); PROTEIN TOTAL,TP 8.1 g/dL (6.0-8.0)
[2023-07-12] MEDS ORDERED: cefTRIAXone 1 GM Vial IVPUSH SCH (11:00)
[2023-07-12] MEDS: Ertapenem 1 GM in Sodium Chloride 0.9% 50 ML IV SCH (11:12)
[2023-07-12] MEDS ORDERED: Ondansetron 4 MG/2 ML SDV IV PRN (12:28)
[2023-07-12] MEDS ORDERED: Sennosides/Docusate Sodium 50-8.6 MG Tab PO PRN (12:28)
[2023-07-12] MEDS ORDERED: Nitroglycerin 0.4 MG Tab.SL SL PRN (12:38)
[2023-07-12] MEDS ORDERED: Meclizine 25 MG Tab PO PRN (12:38)
[2023-07-12] MEDS ORDERED: Bisacodyl 10 MG Supp RECTAL PRN (12:38)
[2023-07-12] MEDS ORDERED: guaiFENesin 100 MG/5 ML Soln 5 ML UD Cup PO PRN (12:38)
[2023-07-12] MEDS ORDERED: Loperamide 2 MG Cap PO PRN (12:38)
[2023-07-12] MEDS ORDERED: Aluminum Hydroxide/Magnesium Hydroxide Susp 30 ML Cup PO PRN (12:56)
[2023-07-12] MEDS ORDERED: Magnesium Hydroxide 400 MG/5 ML Susp 30 ML Cup PO PRN (12:57)
[2023-07-12] MEDS: Pregabalin 25 MG Cap PO SCH (15:00)
[2023-07-12] MEDS: Acetaminophen 650 MG Tab.ER PO PRN (15:00)
[2023-07-12] MEDS: Enoxaparin 40 MG/0.4 ML Syringe SUBCUT SCH (15:01)
[2023-07-12] MEDS: Calcium Carbonate 500 MG Tablet PO SCH (20:43)
[2023-07-12] MEDS: Donepezil 10 MG Tab PO SCH (20:43)
[2023-07-12] MEDS: Memantine 10 MG Tab PO SCH (20:44)
[2023-07-12] MEDS ORDERED: Sulfamethoxazole/Trimethoprim 800-160 MG Tab PO SCH (21:00)
[2023-07-13 06:46] LABS: BASOPHILS PERCENT AUTO 0.6 % (0.2-1.5); EOSINOPHILS PERCENT AUTO 0.7 % (0.6-8.1); HEMATOCRIT 39.6 % (34.2-48.2); HEMOGLOBIN 13.1 g/dL (11.4-15.5); LYMPHOCYTES ABSOLUTE AUTO 0.8 x10-3/uL (1.0-4.4); LYMPHOCYTES PERCENT AUTO 11.6 % (18.4-52.1); MEAN CORPUSCULAR HEMOGLOBIN 28.6 pg (23.9-33.9); MEAN CORPUSCULAR HGB CONC 33.1 g/dL (31.9-34.8); MEAN CORPUSCULAR VOLUME 86.5 fL (76.7-100.5); MONOCYTES ABSOLUTE AUTO 0.8 x10-3/uL (0.3-1.0); MONOCYTES PERCENT AUTO 12.5 % (4.4-15.7); NEUTROPHILS PERCENT AUTO 74.6 % (30.8-76.2); PLATELET COUNT,PLT 217 x10(3)uL (151-488); RED BLOOD CELL COUNT 4.57 x10(6)uL (3.60-5.20); RED CELL DISTRIBUTION WIDTH 14.9 % (12.3-16.5); WHITE BLOOD CELL COUNT,WBC 6.7 x10-3/uL (3.0-10.3)
[2023-07-13 06:58] LABS: A/G RATIO 0.8; ALANINE AMINOTRANSFERASE,ALT 29 U/L (12-36); ALBUMIN 3.3 g/dL (3.2-4.6); ALKALINE PHOSPHATASE 83 IU/L (56-112); ASPARTATE AMNIOTRANSFERASE,AST 26 IU/L (5-25); BILIRUBIN TOTAL 1.1 mg/dL (0.1-1.3); BLOOD UREA NITROGEN,BUN 15 mg/dL (7-18); BUN/CREATININE RATIO 13.6 (9-20); CALCIUM 9.2 mg/dL (8.6-10.2); CARBON DIOXIDE,CO2 27 mmol/L (21-32); CHLORIDE,CL 101 mmol/L (100-110); CREATININE 1.1 mg/dL (0.55-1.02); EST CRCL DRUG DOSING (CG) 32.23 mL/min; ESTIMATED GFR 53 mL/min (>60); GLUCOSE RANDOM 103 mg/dL (80-116); PROTEIN TOTAL,TP 7.5 g/dL (6.0-8.0); SODIUM,NA 137 mmol/L (135-145)
[2023-07-13] MEDS: Clopidogrel 75 MG Tab PO SCH (08:51)
[2023-07-13] MEDS: Potassium Chloride 20 MEQ Tab.ER PO SCH (08:51)
[2023-07-13] MEDS: atorvaSTATin 20 MG Tab PO SCH (08:51)
[2023-07-13] MEDS: Spironolactone 25 MG Tab PO SCH (08:51)
[2023-07-13] MEDS: Metoprolol Succinate 50 MG Tab.ER PO SCH (08:52)
[2023-07-13] MEDS: Ertapenem 1 GM in Sodium Chloride 0.9% 50 ML IV SCH (12:57)
[2023-07-14 06:33] LABS: BASOPHILS ABSOLUTE AUTO 0.1 x10-3/uL (0.0-0.1); BASOPHILS PERCENT AUTO 1.1 % (0.2-1.5); EOSINOPHILS ABSOLUTE AUTO 0.1 x10-3/uL (0.0-0.8); EOSINOPHILS PERCENT AUTO 2.7 % (0.6-8.1); HEMOGLOBIN 12.6 g/dL (11.4-15.5); MEAN CORPUSCULAR HEMOGLOBIN 28.6 pg (23.9-33.9); MEAN CORPUSCULAR HGB CONC 33.2 g/dL (31.9-34.8); MEAN CORPUSCULAR VOLUME 86.2 fL (76.7-100.5); MONOCYTES ABSOLUTE AUTO 0.7 x10-3/uL (0.3-1.0); MONOCYTES PERCENT AUTO 12.1 % (4.4-15.7); NEUTROPHILS ABSOLUTE AUTO 3.6 x10-3/uL (1.5-6.3); NEUTROPHILS PERCENT AUTO 66.1 % (30.8-76.2); PLATELET COUNT,PLT 236 x10(3)uL (151-488); RED BLOOD CELL COUNT 4.41 x10(6)uL (3.60-5.20); RED CELL DISTRIBUTION WIDTH 14.8 % (12.3-16.5); WHITE BLOOD CELL COUNT,WBC 5.4 x10-3/uL (3.0-10.3)
[2023-07-14 06:38] LABS: BLOOD UREA NITROGEN,BUN 14 mg/dL (7-18); BUN/CREATININE RATIO 15.6 (9-20); CALCIUM 9.1 mg/dL (8.6-10.2); CARBON DIOXIDE,CO2 27 mmol/L (21-32); CHLORIDE,CL 101 mmol/L (100-110); CREATININE 0.9 mg/dL (0.55-1.02); EST CRCL DRUG DOSING (CG) 39.39 mL/min; ESTIMATED GFR 67 mL/min (>60); GLUCOSE RANDOM 104 mg/dL (80-116); POTASSIUM,K 4.1 mmol/L (3.5-5.3); SODIUM,NA 135 mmol/L (135-145)
[2023-07-15 16:28] VITALS: BP 133/66; PULSE 64
[2023-07-18] MEDS ORDERED: Alendronate 70 MG Tab PO SCH (06:00)
== END 2023-07-15 16:45 | disposition home or self-care (01) | DRG 690 ==
LOC: FB.ED 08:55 → FB.MS 12:48
PROVIDERS: ADMIT Family Medicine; ATTEND Internal Medicine
DX: R53.1 Weakness (principal); F03.90 Unspecified dementia, unspecified severity, without behavioral disturbance, psychotic disturbance, mood disturbance, and anxiety; N30.01 Acute cystitis with hematuria; I12.0 Hypertensive chronic kidney disease with stage 5 chronic kidney disease or end stage renal disease; F02.A3 Dementia in other diseases classified elsewhere, mild, with mood disturbance; I25.10 Atherosclerotic heart disease of native coronary artery without angina pectoris; E66.9 Obesity, unspecified; E78.5 Hyperlipidemia, unspecified; Z88.8 Allergy status to other drugs, medicaments and biological substances; G30.1 Alzheimer's disease with late onset; G89.29 Other chronic pain; I25.2 Old myocardial infarction; M54.9 Dorsalgia, unspecified; I12.9 Hypertensive chronic kidney disease with stage 1 through stage 4 chronic kidney disease, or unspecified chronic kidney disease; B96.20 Unspecified Escherichia coli [E. coli] as the cause of diseases classified elsewhere; N18.31 Chronic kidney disease, stage 3a; R35.0 Frequency of micturition; Z68.31 Body mass index [BMI] 31.0-31.9, adult; Z95.1 Presence of aortocoronary bypass graft; Z88.0 Allergy status to penicillin; Z88.2 Allergy status to sulfonamides; Z98.49 Cataract extraction status, unspecified eye; Z98.51 Tubal ligation status; Z79.02 Long term (current) use of antithrombotics/antiplatelets; Z90.49 Acquired absence of other specified parts of digestive tract; Z98.890 Other specified postprocedural states; Z90.710 Acquired absence of both cervix and uterus; Z79.899 Other long term (current) drug therapy; W19.XXXA Unspecified fall, initial encounter
CPT/HCPCS: 0241U; 36415; 71045; 80048; 80053; 81001; 82550; 83605; 84484; 85025; 87086; 87088; 87186; 93005; 96365; 97161; 97165; 97530; 99285; 99223; 99233; 99238; A9270-GY; J1335; J1650; J3490

== ENCOUNTER 2025-01-09 19:22 | Inpatient (IN) | payer MEDICARE, BC ==
[2025-01-09 19:50] LABS: BASOPHILS ABSOLUTE AUTO 0.1 x10-3/uL (0.0-0.1); BASOPHILS PERCENT AUTO 1.2 % (0.2-1.5); EOSINOPHILS ABSOLUTE AUTO 0.3 x10-3/uL (0.0-0.8); EOSINOPHILS PERCENT AUTO 4.6 % (0.6-8.1); LYMPHOCYTES ABSOLUTE AUTO 0.8 x10-3/uL (1.0-4.4); LYMPHOCYTES PERCENT AUTO 13.0 % (18.4-52.1); MEAN PLATELET VOLUME 8.4 fL (7.1-12.4); MONOCYTES ABSOLUTE AUTO 0.7 x10-3/uL (0.3-1.0); MONOCYTES PERCENT AUTO 11.0 % (4.4-15.7); NEUTROPHILS ABSOLUTE AUTO 4.3 x10-3/uL (1.5-6.3); NEUTROPHILS PERCENT AUTO 70.2 % (30.8-76.2); PLATELET COUNT,PLT 274 x10(3)uL (151-488); RED BLOOD CELL COUNT 4.64 x10(6)uL (3.60-5.20); RED CELL DISTRIBUTION WIDTH 15.1 % (12.3-16.5); WHITE BLOOD CELL COUNT,WBC 6.2 x10-3/uL (3.0-10.3)
[2025-01-09 19:57] LABS: BLOOD UREA NITROGEN,BUN 16 mg/dL (7-18); CARBON DIOXIDE,CO2 28 mmol/L (21-32); CHLORIDE,CL 101 mmol/L (100-110); CREATININE 1.4 mg/dL (0.55-1.02); EST CRCL DRUG DOSING (CG) 24.94 mL/min; ESTIMATED GFR 39 mL/min (>60); GLUCOSE RANDOM 135 mg/dL (80-116); POTASSIUM,K 4.0 mmol/L (3.5-5.3); SODIUM,NA 139 mmol/L (135-145)
[2025-01-09 20:03] LABS: A/G RATIO 0.8; ALANINE AMINOTRANSFERASE,ALT 21 U/L (12-36); ASPARTATE AMNIOTRANSFERASE,AST 23 IU/L (5-25); BILIRUBIN TOTAL 0.6 mg/dL (0.1-1.3); CREATINE KINASE,CK 126 IU/L (60-160); PROTEIN TOTAL,TP 8.1 g/dL (6.0-8.0)
[2025-01-09 20:58] LABS: LACTIC ACID 2.0 mmol/L (0.4-2.0)
[2025-01-09] MEDS ORDERED: Sennosides/Docusate Sodium 50-8.6 MG Tab PO PRN (21:02)
[2025-01-09] MEDS ORDERED: Ondansetron 4 MG/2 ML SDV IV PRN (21:02)
[2025-01-10 06:37] LABS: BASOPHILS ABSOLUTE AUTO 0.1 x10-3/uL (0.0-0.1); BASOPHILS PERCENT AUTO 1.4 % (0.2-1.5); EOSINOPHILS ABSOLUTE AUTO 0.4 x10-3/uL (0.0-0.8); EOSINOPHILS PERCENT AUTO 7.3 % (0.6-8.1); LYMPHOCYTES ABSOLUTE AUTO 1.0 x10-3/uL (1.0-4.4); LYMPHOCYTES PERCENT AUTO 17.2 % (18.4-52.1); MEAN PLATELET VOLUME 8.7 fL (7.1-12.4); MONOCYTES ABSOLUTE AUTO 0.7 x10-3/uL (0.3-1.0); MONOCYTES PERCENT AUTO 12.6 % (4.4-15.7); NEUTROPHILS ABSOLUTE AUTO 3.4 x10-3/uL (1.5-6.3); NEUTROPHILS PERCENT AUTO 61.5 % (30.8-76.2); PLATELET COUNT,PLT 235 x10(3)uL (151-488); RED BLOOD CELL COUNT 4.43 x10(6)uL (3.60-5.20); RED CELL DISTRIBUTION WIDTH 14.6 % (12.3-16.5); WHITE BLOOD CELL COUNT,WBC 5.5 x10-3/uL (3.0-10.3)
[2025-01-10 06:51] LABS: A/G RATIO 0.8; ALANINE AMINOTRANSFERASE,ALT 18 U/L (12-36); ASPARTATE AMNIOTRANSFERASE,AST 21 IU/L (5-25); BILIRUBIN TOTAL 0.5 mg/dL (0.1-1.3); BLOOD UREA NITROGEN,BUN 13 mg/dL (7-18); CARBON DIOXIDE,CO2 24 mmol/L (21-32); CHLORIDE,CL 108 mmol/L (100-110); CREATININE 1.1 mg/dL (0.55-1.02); EST CRCL DRUG DOSING (CG) 33.34 mL/min; ESTIMATED GFR 52 mL/min (>60); GLUCOSE RANDOM 118 mg/dL (80-116); POTASSIUM,K 3.8 mmol/L (3.5-5.3); PROTEIN TOTAL,TP 7.1 g/dL (6.0-8.0); SODIUM,NA 139 mmol/L (135-145)
[2025-01-10] MEDS ORDERED: Magnesium Hydroxide 400 MG/5 ML Susp 30 ML Cup PO PRN (08:53)
[2025-01-10] MEDS ORDERED: Non-Formulary Medication 1 Each (D-Mannose [Azo D-Mannose] 500 MG Cap) PO SCH (09:00)
[2025-01-10] MEDS: Fluticasone NASAL Spray 16 GM Bottle NASBOTH SCH (09:58)
[2025-01-10] MEDS: Oxybutynin 5 MG Tab.ER PO SCH (10:00)
[2025-01-11 06:21] LABS: BASOPHILS ABSOLUTE AUTO 0.1 x10-3/uL (0.0-0.1); BASOPHILS PERCENT AUTO 1.0 % (0.2-1.5); EOSINOPHILS ABSOLUTE AUTO 0.4 x10-3/uL (0.0-0.8); EOSINOPHILS PERCENT AUTO 6.3 % (0.6-8.1); LYMPHOCYTES ABSOLUTE AUTO 0.9 x10-3/uL (1.0-4.4); LYMPHOCYTES PERCENT AUTO 15.1 % (18.4-52.1); MEAN PLATELET VOLUME 8.2 fL (7.1-12.4); MONOCYTES ABSOLUTE AUTO 0.6 x10-3/uL (0.3-1.0); MONOCYTES PERCENT AUTO 10.6 % (4.4-15.7); NEUTROPHILS ABSOLUTE AUTO 4.0 x10-3/uL (1.5-6.3); NEUTROPHILS PERCENT AUTO 67.0 % (30.8-76.2); PLATELET COUNT,PLT 222 x10(3)uL (151-488); RED BLOOD CELL COUNT 4.41 x10(6)uL (3.60-5.20); RED CELL DISTRIBUTION WIDTH 15.0 % (12.3-16.5); WHITE BLOOD CELL COUNT,WBC 5.9 x10-3/uL (3.0-10.3)
[2025-01-11 06:24] LABS: BLOOD UREA NITROGEN,BUN 12 mg/dL (7-18); CARBON DIOXIDE,CO2 24 mmol/L (21-32); CHLORIDE,CL 108 mmol/L (100-110); CREATININE 1.0 mg/dL (0.55-1.02); EST CRCL DRUG DOSING (CG) 36.68 mL/min; ESTIMATED GFR 59 mL/min (>60); GLUCOSE RANDOM 113 mg/dL (80-116); POTASSIUM,K 3.7 mmol/L (3.5-5.3); SODIUM,NA 142 mmol/L (135-145)
[2025-01-11] MEDS: Acetaminophen 650 MG Tab.ER PO PRN (08:48)
[2025-01-11 11:29] VITALS: BP 135/52; PULSE 56
[2025-01-14] MEDS ORDERED: Non-Formulary Medication 1 Each (Alendronate Sodium [Alendronate Sodium] 70 MG Tablet) PO SCH (06:00)
== END 2025-01-11 13:27 | disposition home or self-care (01) | DRG 690 ==
LOC: FB.ED 19:22 → FB.MS 21:02
PROVIDERS: ADMIT Emergency Medicine; ATTEND Internal Medicine
DX: N30.01 Acute cystitis with hematuria (principal); N18.2 Chronic kidney disease, stage 2 (mild); F02.83 Dementia in other diseases classified elsewhere, unspecified severity, with mood disturbance; G93.40 Encephalopathy, unspecified; N17.9 Acute kidney failure, unspecified; I12.9 Hypertensive chronic kidney disease with stage 1 through stage 4 chronic kidney disease, or unspecified chronic kidney disease; R29.6 Repeated falls; R53.81 Other malaise; Z88.2 Allergy status to sulfonamides; N18.31 Chronic kidney disease, stage 3a; G30.1 Alzheimer's disease with late onset; G30.9 Alzheimer's disease, unspecified; I25.10 Atherosclerotic heart disease of native coronary artery without angina pectoris; Z68.29 Body mass index [BMI] 29.0-29.9, adult; E78.00 Pure hypercholesterolemia, unspecified; E86.0 Dehydration; M54.9 Dorsalgia, unspecified; G89.29 Other chronic pain; E66.9 Obesity, unspecified; I25.2 Old myocardial infarction; Z68.32 Body mass index [BMI] 32.0-32.9, adult; Z90.49 Acquired absence of other specified parts of digestive tract; Z98.890 Other specified postprocedural states; Z98.891 History of uterine scar from previous surgery; Z88.0 Allergy status to penicillin; Z88.8 Allergy status to other drugs, medicaments and biological substances; Z95.5 Presence of coronary angioplasty implant and graft; Z79.899 Other long term (current) drug therapy; Z98.49 Cataract extraction status, unspecified eye; Z90.710 Acquired absence of both cervix and uterus; Z98.51 Tubal ligation status
CPT/HCPCS: 36415; 80048; 80053; 82550; 83605; 83735; 84484; 85025; 96361; 96374; 97161-GP; 97165-GO; 99285-25; A9270-GY; J0696; J1650; J7030

== ENCOUNTER 2025-02-13 09:51 | Emergency (ER) | payer MEDICARE, BC ==
[2025-02-13 10:23] LABS: GLUCOSE,URINE NORMAL (NORMAL); OCCULT BLOOD,URINE MODERATE (NEGATIVE)
[2025-02-13 10:26] LABS: APPEARANCE,URINE SLIGHTLY CLOUDY (CLEAR)
[2025-02-13 10:34] LABS: SQUAMOUS EPITHELIAL CELLS,UR FEW (NS,R,O)
[2025-02-13] MEDS ORDERED: Sodium Chloride 0.9% 10 ML Syringe FLUSH PRN (10:44)
[2025-02-13 11:06] LABS: BASOPHILS ABSOLUTE AUTO 0.1 x10-3/uL (0.0-0.1); BASOPHILS PERCENT AUTO 1.2 % (0.2-1.5); EOSINOPHILS ABSOLUTE AUTO 0.3 x10-3/uL (0.0-0.8); EOSINOPHILS PERCENT AUTO 4.6 % (0.6-8.1); LYMPHOCYTES ABSOLUTE AUTO 1.0 x10-3/uL (1.0-4.4); LYMPHOCYTES PERCENT AUTO 16.5 % (18.4-52.1); MEAN PLATELET VOLUME 8.7 fL (7.1-12.4); MONOCYTES ABSOLUTE AUTO 0.7 x10-3/uL (0.3-1.0); MONOCYTES PERCENT AUTO 11.3 % (4.4-15.7); NEUTROPHILS ABSOLUTE AUTO 3.9 x10-3/uL (1.5-6.3); NEUTROPHILS PERCENT AUTO 66.4 % (30.8-76.2); PLATELET COUNT,PLT 277 x10(3)uL (151-488); RED BLOOD CELL COUNT 4.79 x10(6)uL (3.60-5.20); RED CELL DISTRIBUTION WIDTH 15.1 % (12.3-16.5); WHITE BLOOD CELL COUNT,WBC 5.9 x10-3/uL (3.0-10.3)
[2025-02-13 11:11] LABS: BLOOD UREA NITROGEN,BUN 16 mg/dL (7-18); CARBON DIOXIDE,CO2 28 mmol/L (21-32); CHLORIDE,CL 102 mmol/L (100-110); CREATININE 1.3 mg/dL (0.55-1.02); EST CRCL DRUG DOSING (CG) 29.57 mL/min; ESTIMATED GFR 43 mL/min (>60); GLUCOSE RANDOM 114 mg/dL (80-116); POTASSIUM,K 4.4 mmol/L (3.5-5.3); SODIUM,NA 139 mmol/L (135-145)
[2025-02-13 11:17] LABS: A/G RATIO 0.9; ALANINE AMINOTRANSFERASE,ALT 19 U/L (12-36); ASPARTATE AMNIOTRANSFERASE,AST 21 IU/L (5-25); BILIRUBIN TOTAL 0.9 mg/dL (0.1-1.3); PROTEIN TOTAL,TP 8.2 g/dL (6.0-8.0)
[2025-02-13 11:22] LABS: LACTIC ACID 2.0 mmol/L (0.4-2.0)
[2025-02-13 12:38] VITALS: BP 139/67; PULSE 61
== END 2025-02-13 13:10 | disposition home or self-care (01) ==
LOC: FB.ED 09:51
DX: N39.0 Urinary tract infection, site not specified (principal); I10 Essential (primary) hypertension; I25.10 Atherosclerotic heart disease of native coronary artery without angina pectoris; I25.2 Old myocardial infarction; E66.9 Obesity, unspecified; Z95.1 Presence of aortocoronary bypass graft; Z79.899 Other long term (current) drug therapy; Z88.0 Allergy status to penicillin; Z88.2 Allergy status to sulfonamides; Z68.29 Body mass index [BMI] 29.0-29.9, adult
CPT/HCPCS: 36415; 80053; 81001; 83605; 85025; 87086; 87088; 96361; 96374; 99284; J0696; J7030